=== PATIENT | male | born 1975 | race Caucasian/White ===

== ENCOUNTER → 2019-01-28 | Outpatient (CLI) | payer OTHER ==
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
== END | disposition home or self-care (01) ==
LOC: RADCTMAIN 11:31
PROVIDERS: ATTEND Neurological Surgery
DX: S32.011D Stable burst fracture of first lumbar vertebra, subsequent encounter for fracture with routine healing (principal)
CPT/HCPCS: 72131

== ENCOUNTER → 2019-04-02 | Outpatient (CLI) | payer OTHER ==
--- NOTE | 2019-04-02 10:56 | MR ---
EXAMINATION TYPE: MR lumbar spine wo con DATE OF EXAM: 04/02/2019 COMPARISON: CT scan 01/28/2019 HISTORY: Low back pain TECHNIQUE: T1 and T2 axial and sagittal images of the lumbar spine are submitted. FINDINGS: There is no abnormal signal seen within the visualized spinal cord or paraspinal soft tissu es. At T12-L1 there is a minimal central disc bulging but no canal stenosis or focal herniation. Neural f oramina patent. No spinal cord contact. L1-L2: L1 burst fracture again noted with loss of height estimated at 50%. Minimal bony retropulsion appreciated. Fracture line continues to be partially visible . No acute fractures identified. No Sheba l stenosis or spinal cord contact. Neural foramina patent. L2-L3: Normal disc space height. No disc herniation protrusion or central stenosis. No facet joint ar thropathy. No evidence for foraminal encroachment. L3-L4: Normal disc space height. No disc herniation protrusion or central stenosis. No facet joint ar thropathy. No evidence for foraminal encroachment. L4-L5: Normal disc space height. No disc herniation protrusion or central stenosis. No facet joint ar thropathy. No evidence for foraminal encroachment. L5-S1: Normal disc space height. Mild posterior disc bulge without herniation or protrusion. No centr al stenosis. No facet joint arthropathy. No evidence for foraminal encroachment. No paraspinal masses are identified. Lumbar segments are free if fracture. IMPRESSION: 1. L1 burst fracture is again noted with loss of height estimated at 50%. There is suggestion of very minimal interval progression in the degree of superior endplate compression relative to the prior CT scan of 01/28/2019. Correlate clinically. Minimal bony retropulsion noted. Fracture line continues to be partially visible with interval callus formation seen
== END | disposition home or self-care (01) ==
LOC: RADMRIMAIN 09:16
PROVIDERS: ATTEND Specialist
DX: S32.011A Stable burst fracture of first lumbar vertebra, initial encounter for closed fracture (principal)
CPT/HCPCS: 72148

== ENCOUNTER → 2019-05-14 | Outpatient (CLI) | payer OTHER | END | disposition home or self-care (01) | LOC: NEUROMAIN 09:00 | PROVIDERS: ATTEND Otolaryngology | DX: R42 Dizziness and giddiness (principal) | CPT/HCPCS: 92537; 92540 ==

== ENCOUNTER → 2019-06-30 | Outpatient (CLI) | payer OTHER ==
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
== END | disposition home or self-care (01) ==
LOC: RADCTMAIN 08:36
PROVIDERS: ATTEND Specialist
DX: S32.01 Fracture of first lumbar vertebra (principal); M51.25 Other intervertebral disc displacement, thoracolumbar region
CPT/HCPCS: 72131

== ENCOUNTER → 2020-05-05 | Outpatient (CLI) | payer OTHER ==
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
== END | disposition home or self-care (01) ==
LOC: RADCTMAIN 08:14
PROVIDERS: ATTEND Specialist
DX: M43.8X6 Other specified deforming dorsopathies, lumbar region (principal)
CPT/HCPCS: 72131

== ENCOUNTER → 2021-05-31 | Outpatient (CLI) | payer OTHER ==
--- NOTE | 2021-05-31 19:59 | MR ---
MRI CERVICAL SPINE: CLINICAL HISTORY: R51.9 Headaches M54.2 Neck pain Z87.820 TBI TECHNIQUE: Multiplanar, multisequence imaging of the brain and cervical spine is performed without in travenous contrast COMPARISON: None FINDINGS: Brain MRI: There is no restricted diffusion. Brain signal is normal. There is no hemorrhage or hydroc ephalus. Cerebellopontine angles, corpus callosum, pituitary, cervical medullary junction are normal. Orbits show symmetric appearance. There are expected vascular flow voids. Paranasal sinuses show deborah e mild mucosal disease in the ethmoid air cells. Mastoid air cells are well aerated. IMPRESSION: Mild sinus disease. Unremarkable noncontrast brain MRI Cervical spine MRI: Sagittal images of the cervical spine show the craniocervical junction to appear within normal limits . The cervical and upper thoracic spinal cord is normal in course, caliber, and signal. Vertebral a lignment is anatomic. The vertebral body and intravertebral disk heights are normal. The bone marro w signal intensity is within normal limits. Axial images show there is no significant focal disk disease, spinal canal stenosis, neural foraminal narrowing, or spinal cord compromise at any cervical level. IMPRESSION: Negative MRI of the cervical spine, no significant abnormality is seen to account for asaf garcia's clinical symptoms.
== END | disposition home or self-care (01) ==
LOC: RADMRIMAIN 16:21
PROVIDERS: ATTEND Psychiatry & Neurology Neurology
DX: J34.9 Unspecified disorder of nose and nasal sinuses (principal); M54.2 Cervicalgia; Z87.820 Personal history of traumatic brain injury
CPT/HCPCS: 70551; 72141

== ENCOUNTER → 2021-06-09 | Outpatient (CLI) | payer OTHER ==
--- NOTE | 2021-06-09 12:54 | CONS ---
CONSULTATION DATE OF SERVICE: 06/09/2021 This 46-year-old gentleman has been evaluated in Sleep Center for possible obstructive sleep apnea-hypopnea syndrome. HISTORY OF PRESENT ILLNESS/SLEEP-WAKE EVALUATION: Patient's usual sleep schedule on weekdays is from 10 p.m. to 3:30 or 3:40 a.m. and on weekends from 10 p.m. until 8 or 9 a.m. Sometimes he may have problems with falling asleep, although there is no TV in the bedroom. He usually sleeps on the side position and stomach position. He does snore and has witnessed episodes of stopped breathing during sleep. He wakes up 4 times during the night with one episode of nocturia. Positive history of headaches during the night. In the morning the patient wakes up tired, has difficulties paying attention, worries about his sleep, has problems with memory and concentration and anxiety. [place] Sleepiness Scale is significantly increased at 12. PAST MEDICAL HISTORY: Positive for anxiety, headaches. PAST SURGICAL HISTORY: Finger surgery. MEDICATIONS: Lexapro. SOCIAL HISTORY: Negative for smoking or using alcohol. FAMILY HISTORY: Hypertension, hyperlipidemia. REVIEW OF SYSTEMS: Multiple awakenings from sleep, sleepiness during the day. No fevers. No double vision. No recent chest pain. No shortness of breath. No abdominal pain. No bleeding episodes. No blood in the urine. No seizure episodes. PHYSICAL EXAMINATION: GENERAL: Pleasant gentleman without distress. VITAL SIGNS: BP 111/75, HR 67, RR 16, height 5 feet 7 inches, weight 177.8 pounds, temperature 97.4, oxygen saturation at room air 98%. BMI 27.7. HEENT: PERRLA, EOMI, evaluation of oropharynx showed tongue protrudes midline. Low position of soft palate; Mallampati III to IV. NECK: Supple, no JVD. Thyroid is not palpable. Neck measures 16-3/4 inches in circumference. LUNGS: Clear to percussion and to auscultation. Good air exchange. No wheezing or rhonchi. HEART: S1, S2 regular. No murmurs, gallops, or rubs. ABDOMEN: Soft and nontender. Bowel sounds are present. No organomegaly appreciated. EXTREMITIES: No clubbing or cyanosis. OLIVE GRADER: Awake, alert, and oriented X3. Cranial nerves 2 to 7 intact. There is no fasciculation or atrophy. noted. No focal deficits observed. IMPRESSION: 1. Snoring, witnessed episodes of stopped breathing during sleep, multiple awakenings from sleep, low position of soft palate, Mallampati III to IV, sleepiness, [place] Sleepiness Scale of 12; obstructive sleep apnea-hypopnea syndrome. 2. Anxiety. 3. History of headaches. 4. Status post finger surgery. PLAN: 1. Polysomnography for evaluation of patient's breathing during sleep. 2. CPAP/BiPAP titration if sleep study confirms obstructive sleep apnea-hypopnea syndrome. 3. Preferable position during sleep on the side. 4. No driving if patient feels any sleepiness. 5. I will see patient for follow up visit to explain results of testing and following plan. Thank you very much for referring this patient for consultation. Sincerely, Kwabena Boggs MD, PhD, FAASM Diplomat of [employer] Sleep Medicine Board of [employer] [facility]rey MMODL / IJN: [id number] /
== END ==
LOC: SLEEP 11:48
PROVIDERS: ATTEND Internal Medicine
DX: G47.33 Obstructive sleep apnea (adult) (pediatric) (principal); F41.9 Anxiety disorder, unspecified; Z86.69 Personal history of other diseases of the nervous system and sense organs
CPT/HCPCS: 99211

== ENCOUNTER → 2022-01-23 | Outpatient (CLI) | payer OTHER ==
--- NOTE | 2022-01-23 10:28 | MR ---
EXAMINATION TYPE: MR lumbar spine wo con DATE OF EXAM: 01/23/2022 COMPARISON: CT lumbar spine 09/07/2021 HISTORY: Pain in thoracic spine, back pain TECHNIQUE: T1 and T2 axial and sagittal images of the lumbar spine are submitted. FINDINGS: There is no abnormal signal seen within the visualized spinal cord or paraspinal soft tissu es. There is abnormal marrow signal alteration of L1 with a moderate compression fracture. Approximat marleny 50-60% height reduction of the L1 segment. I question vertebral body hemangioma multiple levels. At L1-2 there is moderate compression fracture appears chronic L1. Minimal central disc bulging. No c anal stenosis or foraminal encroachment. At L2-3 there is no disc herniation or canal stenosis. No foraminal encroachment. No degenerative dis c disease. At L3-4 there is no degenerative disc disease, disc herniation or canal stenosis. No foraminal encroa chment At L4-5 there is no degenerative disc disease or canal stenosis. No foraminal encroachment. There is mild disc desiccation. At L5-S1 there is mild facet arthropathy. There is no disc herniation or canal stenosis. No foraminal encroachment. Loss of this signal. Mild central disc bulging. IMPRESSION: 1. Moderate compression fracture L1 with less than 5% retropulsion. Minimal disc bulging at L1-L2 wit h no canal stenosis or foraminal encroachment. EXAMINATION TYPE: MR thoracic spine wo con DATE OF EXAM: 01/23/2022 COMPARISON: 09/07/2021 HISTORY: Pain in thoracic spine, back pain Standard multiplanar, multisequence MRI departmental protocol Multiplanar, multisequence images of the thoracic were acquired without contrast FINDINGS: There remains a subtle scoliotic curvature of the spine with loss of disc signal at levels T4-T12. Most marked at levels T5-6, T6-7, T7-8 and T8-T9 compatible with moderate to severe degenerat emily disc disease. There is a minimal central disc bulge T6-T7. Minimal impression upon the thecal sac. No spinal cord c ontact. There is minimal right paracentral disc bulging T6-T7 Remaining levels demonstrate no evidence of disc herniation or canal stenosis. No foraminal. Loss of vertebral body height series. Endplate L1 partially included the exam. Stable from prior. No abnormal signal within the visualized spinal cord on the sagittal images. Artifact limits assessme nt of the axial. Neural foramina appear patent. Aorta normal caliber. No definite abnormal signal or spinal structures. IMPRESSION: 1. Multilevel degenerative disc disease most marked at levels T5-T9. 2. Mild disc bulging T5-T6 and T6-T7 with no canal stenosis or foraminal encroachment. 3. Stable superior endplate deformity L1 partially included in the [id number].
== END | disposition home or self-care (01) ==
LOC: RADMRIMAIN 08:56
PROVIDERS: ATTEND Specialist
DX: S32.01 Fracture of first lumbar vertebra (principal); M51.26 Other intervertebral disc displacement, lumbar region
CPT/HCPCS: 72146; 72148

== ENCOUNTER → 2023-08-29 | Outpatient (CLI) | payer OTHER ==
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
[2023-08-29 16:05] VITALS: BP 128/79; PULSE 89; RESP 20; TEMP 98.3
== END ==
LOC: 3 N SLEEP 14:45
PROVIDERS: ATTEND Internal Medicine
DX: G47.33 Obstructive sleep apnea (adult) (pediatric) (principal); E66.9 Obesity, unspecified; F32.A Depression, unspecified; F41.9 Anxiety disorder, unspecified; F07.81 Postconcussional syndrome; Z68.30 Body mass index [BMI] 30.0-30.9, adult; Z99.89 Dependence on other enabling machines and devices; Z86.59 Personal history of other mental and behavioral disorders; Z87.828 Personal history of other (healed) physical injury and trauma; Z98.890 Other specified postprocedural states; Z79.899 Other long term (current) drug therapy
CPT/HCPCS: 99212

== ENCOUNTER → 2024-04-01 | Outpatient (CLI) | payer OTHER ==
[2024-04-01 14:48] LABS: Basophils # (A) 0.12 X 10*3/uL (0.00-0.10); Basophils % (A) 1.5 %; Eosinophils # (A) 0.23 X 10*3/uL (0.04-0.35); Eosinophils % (A) 2.9 %; HCT 46.4 % (39.6-50.0); HGB 15.1 g/dL (13.0-17.0); Lymphocytes # (A) 1.92 X 10*3/uL (0.90-5.00); Lymphocytes % (A) 24.6 %; MCH 30.1 pg (27.0-32.0); MCHC 32.5 g/dL (32.0-37.0); MCV 92.4 FL (80.0-97.0); Mean Platelet Volume 9.4 FL (9.5-12.2); Monocytes # (A) 0.74 X 10*3/uL (0.20-1.00); Monocytes % (A) 9.5 %; NRBC Per 100 WBC 0 X 10*3/uL (0.00-0.01); Neutrophils # (A) 4.73 X 10*3/uL (1.80-7.70); Neutrophils % (A) 60.7 %; Platelet Count 290 X 10*3/uL (140-440); RBC 5.02 X 10*6/uL (4.40-5.60); RDW 13.2 % (11.5-14.5)
[2024-04-01 15:12] LABS: ALT 26 U/L (10-49); AST 21 U/L (14-35); Albumin 4.2 g/dL (3.8-4.9); Albumin/Globulin Ratio 1.31 Ratio (1.60-3.17); Alkaline Phosphatase 128 U/L (41-126); BUN/Creat Ratio 20.57 Ratio (12.00-20.00); Blood Urea Nitrogen 14.4 mg/dL (9.0-27.0); Calcium 9.2 mg/dL (8.7-10.3); Carbon Dioxide 25.1 mmol/L (21.6-31.8); Chloride 105 mmol/L (96-109); Chol/HDL Ratio 3.81 Ratio; Globulin 3.2 g/dL (1.6-3.3); Glucose 101 mg/dL (70-110); LDL Cholesterol,Calculated 131.9 mg/dL (0.0-131.0); Potassium 4.3 mmol/L (3.5-5.5); Sodium 141 mmol/L (135-145); Total Bilirubin 0.3 mg/dL (0.3-1.2); Total Protein 7.4 g/dL (6.2-8.2)
== END | disposition home or self-care (01) ==
LOC: LABWHC1 09:40
PROVIDERS: ATTEND Family Medicine
DX: Z13.89 Encounter for screening for other disorder (principal); Z13.228 Encounter for screening for other metabolic disorders; Z13.29 Encounter for screening for other suspected endocrine disorder; R39.15 Urgency of urination; Z80.42 Family history of malignant neoplasm of prostate
CPT/HCPCS: 36415; 80053; 80061; 84443; 85025

== ENCOUNTER 2024-09-14 15:39 | Emergency (ER) | payer OTHER ==
--- NOTE | 2024-09-14 16:26 | ED ---
Fall HPI - General Chief Complaint: Fall Stated Complaint: fall,abd/chest pain Time Seen by Provider: 09/14/24 15:56 Source: patient, RN notes reviewed Mode of arrival: ambulatory - History of Present Illness Initial Comments: This is a 49-year-old male presenting with left chest pain following a trip and fall on a rock x 7 days ago. Patient states pain (5/10) has been worsening, especially with movement and inspiration. Denies striking head, loss of consciousness, headache, neck pain. Endorses use of Motrin with some relief. Denies fever, chills, dyspnea, hemoptysis, other injuries. Denies use of blood thinners. MD Complaint: fall Onset/Timin -: days(s) Fall From: standing Fall Witnessed: no Place Fall Occurred: street Loss of Consciousness: none Prolonged Down Time?: no Symptoms Prior to Fall: none Location: chest Severity scale (1-10): 5 Quality: stabbing Context: tripped/slipped Associated Symptoms: denies - Related Data Home Medications Medication Instructions Recorded Confirmed Escitalopram [Lexapro] 10 mg PO DAILY 08/29/23 08/29/23 Previous Rx's Medication Instructions Recorded Ibuprofen [Motrin] 800 mg PO Q8HR PRN #30 tab 09/14/24 Allergies Allergy/AdvReac Type Severity Reaction Status Date / Time No Known Allergies Allergy Verified 09/14/24 15:51 Review of Systems ROS Statement: Those systems with pertinent positive or pertinent negative responses have been documented in the HPI. ROS Other: All systems not noted in ROS Statement are negative. Past Medical History Past Medical History: No Reported History History of Any Multi-Drug Resistant Organisms: None Reported Past Surgical History: No Surgical Hx Reported Past Anesthesia/Blood Transfusion Reactions: No Reported Reaction Past Psychological History: No Psychological Hx Reported Smoking Status: Never smoker Past Alcohol Use History: None Reported Past Drug Use History: None Reported General Exam Limitations: no limitations General appearance: alert, in no apparent distress Head exam: Present: atraumatic, normocephalic, normal inspection Eye exam: Present: normal appearance, PERRL, EOMI. Absent: scleral icterus, con junctival injection, periorbital swelling ENT exam: Present: normal exam, mucous membranes moist Neck exam: Present: normal inspection. Absent: tenderness, meningismus, lymphadenopathy Respiratory exam: Present: normal lung sounds bilaterally, chest wall tenderness (Positive left anterior rib tenderness on inferior aspect without obvious crepitus or deformity). Absent: respiratory distress, wheezes, rales, rhonchi, stridor, accessory muscle use, decreased breath sounds, prolonged expiratory Cardiovascular Exam: Present: regular rate, normal rhythm, normal heart sounds. Absent: systolic murmur, diastolic murmur, rubs, gallop, clicks GI/Abdominal exam: Present: soft, normal bowel sounds. Absent: distended, tenderness, guarding, rebound, rigid Extremities exam: Present: normal inspection, full ROM, normal capillary refill. Absent: tenderness, pedal edema, joint swelling, calf tenderness Back exam: Present: normal inspection Neurological exam: Present: alert, oriented X3, CN II-XII intact Psychiatric exam: Present: normal affect, normal mood Skin exam: Present: warm, dry, intact, normal color. Absent: rash Course Vital Signs 09/14/24 09/14/24 15:47 17:15 Temperature 98 F 98.3 F Pulse Rate 71 64 Respiratory 16 19 Rate Blood Pressure 116/67 125/74 O2 Sat by Pulse 97 99 Oximetry Medical Decision Making - Medical Decision Making Was pt. sent in by a medical professional or institution (, [facility], [employer], urgent c are, hospital, or correction...) When possible be specific @ -No Did you speak to anyone other than the patient for history (EMS, parent, family, police, friend...)? What history was obtained from this source @ -No Did you review nursing and triage notes (agree or disagree)? Why? @ -I reviewed and agree with nursing and triage notes Were old charts reviewed (outside hosp., previous admission, EMS record, old EKG, old radiological studies, urgent care reports/EKG's, correction records)? Report findings @ -No old charts were reviewed Differential Diagnosis (chest pain, altered mental status, abdominal pain women, abdominal pain men, vaginal bleeding, weakness, fever, dyspnea, syncope, headache, dizziness, GI bleed, back pain, seizure, CVA, palpatations, mental health, musculoskeletal)? @ -Differential Musculoskeletal Muscular strain, contusion, ligament sprain, fracture, arthritis, septic arthritis, bursitis, cellulitis, muscle spasm, nerve compression, DVT, arterial occlusion, herpes zoster, electrolyte abnormality, tumor.... This is not meant to be in all inclusive list EKG interpreted by me (3pts min.). @ -Not done X-rays interpreted by me (1pt min.). @ -Left rib x-ray shows acute nondisplaced fracture of the left lateral eighth rib and no acute cardiopulmonary process. CT interpreted by me (1pt min.). @ -None done U/S interpreted by me (1pt. min.). @ -None done What testing was considered but not performed or refused? (CT, X-rays, U/S, labs)? Why? @ -None What meds were considered but not given or refused? Why? @ -None Did you discuss the management of the patient with other professionals (professionals i.e. Dr., PA, [employer], lab, RT, psych nurse, rn social services, stretching machine operator, teacher, staff combat information center officer, family independence case manager)? Give summary @ -No Was smoking cessation discussed for >3mins.? @ -No Was critical care preformed (if so, how long)? @ -No Were there social determinants of health that impacted care today? How? (Homelessness, low income, unemployed, alcoholism, drug addiction, transportation, low edu. Level, literacy, decrease access to med. care, half-way, rehab)? @ -No Was there de-escalation of care discussed even if they declined (Discuss DNR or withdrawal of care, Hospice)? DNR status @ -No What co-morbidities impacted this encounter? (DM, HTN, Smoking, COPD, CAD, Cancer, CVA, ARF, Chemo, Hep., AIDS, mental health diagnosis, sleep apnea, mo rbid obesity)? @ -None Was patient admitted / discharged? Hospital course, mention meds given and route, prescriptions, significant lab abnormalities, going to OR and other pertinent info. @ -Left rib x-ray shows acute nondisplaced fracture of the left lateral eighth rib and no acute cardiopulmonary process. Patient initially provided IM Toradol, p.o. Tylenol and lidocaine patch with some relief noted. Patient provided incentive spirometer and T3 starter pack. Advised RICE and alternate Tylenol/Motrin every 4 hours for pain with Motrin 800 sent to patient's pharmacy. Follow-up with PCP for any ongoing or worsening symptoms. Discussed patient with Dr. Johns. Undiagnosed new problem with uncertain prognosis? @ -No Drug Therapy requiring intensive monitoring for toxicity (Heparin, Nitro, Insulin, Cardizem)? @ -No Were any procedures done? @ -No Diagnosis/symptom? @ -Nondisplaced left rib fracture Acute, or Chronic, or Acute on Chronic? @ -Acute Uncomplicated (without systemic symptoms) or Complicated (systemic symptoms)? @ -Uncomplicated Side effects of treatment? @ -No Exacerbation, Progression, or Severe Exacerbation? @ -No Poses a threat to life or bodily function? How? (Chest pain, [place], [place], pneumonia, PE, COPD, DKA, ARF, appy, cholecystitis, CVA, Diverticulitis, Homicidal, Suicidal, threat to staff... and all critical care pts) @ -No Disposition Clinical Impression: Closed traumatic nondisplaced fracture of one rib of left side Disposition: HOME SELF-CARE Condition: Fair Instructions (If sedation given, give patient instructions): How to Use an Incentive Spirometer (ED), Rib Fracture (ED) Additional Instructions: Alternate Tylenol/Motrin every 4 hours for pain. Cool compress to affected area for 10 minutes up to 4 times daily. Follow-up with PCP for any ongoing or worsening symptoms. Prescriptions: Ibuprofen [Motrin] 800 mg PO Q8HR PRN #30 tab PRN Reason: Pain Is patient prescribed a controlled substance at d/c from ED?: No Referrals: Gemma Carrasco DO [Primary Care Provider] - 1-2 days Time of Disposition: 17:09
[2024-09-14] MEDS: ACETAMINOPHEN TAB 500 MG TAB PO STA (16:43)
[2024-09-14] MEDS: LIDOCAINE 4% PATCH TOPICAL ONE (16:44)
[2024-09-14] MEDS: KETOROLAC 15 MG/ML 1 ML VIAL IM STA (16:45)
--- NOTE | 2024-09-14 16:51 | XR ---
EXAMINATION TYPE: XR ribs LT w pa chest xray DATE OF EXAM: 09/14/2024 4:44 PM COMPARISON: None available. CLINICAL INDICATION: Male, 49 years old with history of Fall, struck rock. Left anterior rib pain; P HH, pain TECHNIQUE: XR ribs LT w pa chest xray; Frontal and oblique views of the ribs with frontal chest radio graph. FINDINGS: The ribs have a normal appearance. No evidence of fracture. Overall, the lungs are clear. The cardiac silhouette is normal in size. Old left-sided rib fracture deformities. Possible acute n ondisplaced left lateral eighth rib fracture. Age-indeterminate nondisplaced left-sided eighth rib fr acture. IMPRESSION: Possible acute nondisplaced fracture of the left lateral eighth rib. Additional chronic healed left-s ided rib fracture deformities also noted. [facility], , 09/14/2024 4:49 PM
[2024-09-14 17:16] VITALS: BP 125/74; PULSE 64; RESP 19; TEMP 98.3
[2024-09-14] MEDS: ACET/COD 300 MG/30 MG STARTER PACK 6 TAB BTL PO STA (17:20)
== END 2024-09-14 17:32 | disposition home or self-care (01) ==
LOC: EC 15:39
DX: S22.32XA Fracture of one rib, left side, initial encounter for closed fracture (principal); W01.0XXA Fall on same level from slipping, tripping and stumbling without subsequent striking against object, initial encounter; Y92.410 Unspecified street and highway as the place of occurrence of the external cause
CPT/HCPCS: 71101; 99283; 96372; J1885